=== PATIENT | male | born 1950 | race Caucasian/White ===

== ENCOUNTER → 2016-07-16 | Outpatient (CLI) | payer BC | LOC: KOH-I 10:58 | DX: M54.5 Low back pain (principal); S23.41XD Sprain of ribs, subsequent encounter | CPT/HCPCS: 71020 ==

== ENCOUNTER 2020-11-20 11:05 | Emergency (ER) | payer MEDICARE, OTHER ==
[~2020-11-20 11:05] MED LIST: ASPIRIN CHEWABL81 MG PO; LEXAPRO5 MG PO; LORTAB 7.5-3251 EACH PO; PRINIVIL10 MG PO; PROTONIX40 MG PO; SYNTHROID150 MCG PO; TOPROL XL25 MG PO; ZETIA 10 MG TAB10 MG PO; ZOCOR20 MG PO
[2020-11-20 12:59] LABS: HEMOGLOBIN 12.2 gm/dl (14.0-17.5); WHITE BLOOD COUNT 5.1 K/UL (4.5-11.0)
== END 2020-11-20 19:24 | disposition left against medical advice (07) ==
LOC: ER1 11:05
PROVIDERS: Physician Assistant
DX: S91.332A Puncture wound without foreign body, left foot, initial encounter (principal); I10 Essential (primary) hypertension; E03.9 Hypothyroidism, unspecified; K21.9 Gastro-esophageal reflux disease without esophagitis; Z90.49 Acquired absence of other specified parts of digestive tract; Z90.89 Acquired absence of other organs; Z85.850 Personal history of malignant neoplasm of thyroid; W45.0XXA Nail entering through skin, initial encounter
CPT/HCPCS: 73630; 80053; 83605; 85025; 87040; 93971; 99284